=== PATIENT | female | born 1995 | race Caucasian/White ===

== ENCOUNTER 2018-12-18 14:49 | Emergency (ER) | payer BC ==
[~2018-12-18 14:49] MED LIST: ACE325S PR; ARIP5TAB28; ARIP5TAB28 PO; CYCL10TA29 PO; DESV50TA9 PO; DOCU-416 PO; DOXE10CA25 PO; ESCI10TA48; ESCI10TA48 PO; FLU10 PO; FLUO-202 PO; HYDR-653 PO; HYDR25CA13 PO; IRON1TAB4 PO; LISI30TA46 PO; LOR5/325 PO; LORA10TA2 PO; MULT1CAP59 PO; NO CURRENT MEDS; NOR5/325 PO; OMEP40CA48 PO; OXYC-865 PO; OXYC1TAB54 GT; PARO-243 PO; SUCR1TAB85 PO; TRAZ-133 PO; VENL75TA12 PO
--- NOTE | 2018-12-18 15:25 | ER Report ---
History and Physical Time Seen By MD: 15:25 Hx. of Stated Complaint: C/O UPPER, MID AND LOWER BACK PAIN SINCE TRYING ON CLOTHES YESTERDAY. HPI/ROS CHIEF COMPLAINT: back pain HISTORY OF PRESENT ILLNESS:Pt states that two days ago she was trying on clothes. when trying to squeeze into a pair of pants pt states her low back went into a spasm. Pt has had back pain since that occurred. Pain is now mid thorasic down to her buttocks. Pain radiates down both legs to knees. Pain is sharp, crampy and spasm like. no weakness. no trouble with bowel or bladder. pt using tylenol and salonpas and it was initially helping but not anymore. Pt states when she was 12 years old she fell off a trampoline and has had intermittent back pain since then. Pt statse she was told she had "pinched nerve" . Pt sees a chiropractor for her back intermittently but not recently. REVIEW OF SYSTEMS: Constitutional: No fever, no chills. Eyes: No discharge. ENT: No sore throat. Cardiovascular: No chest pain, no palpitations. Respiratory: No cough, no shortness of breath. Gastrointestinal: No abdominal pain, no vomiting. Genitourinary: No hematuria. Musculoskeletal: + back pain, + spasms Skin: No rashes. Neurological: No headache, + radiation down legs Allergies: Coded Allergies: trazodone (Verified Allergy, Intermediate, HIVES, 12/18/18) Penicillins (Verified Allergy, Mild, 12/18/18) Home Meds Reported Medications Paroxetine Hcl (PAXIL) 20 Mg Tablet, 40 MG PO QDAY, TAB 07/01/17 Hydroxyzine Pamoate (HYDROXYZINE PAMOATE) 25 Mg Capsule, 25 MG PO QHS, CAPSULE 09/29/15 Discontinued Scripts Omeprazole (OMEPRAZOLE) 40 Mg Capsule.dr, 40 MG PO QDAY, #30 CAP Prov:LANA SHEPHERD 07/01/17 Sucralfate (CARAFATE) 1 Gm Tablet, 1 GM PO QID, #60 TAB Take before meals and at bedtime. Crush the tablet and mix with water before taking. Prov:LANA SHEPHERD 07/01/17 Past Medical/Surgical History Pmhx: cough, asthma, abdominal pain, wrist fractures, back pain, anxiety, depression, suicide attempt. Pshx: tonsillectomy, bilateral tubes in ears, adenoidectomy, cholecystectomy. Pfhx: cancer, CAD, stroke, diabetes. Reviewed Nurses Notes: Yes Old Medical Records Reviewed: Yes Hx Smoking: Yes (1/3 PPD) Smoking Status: Current: Every Day Smoker Exposure to Second Hand Smoke?: Yes Hx Substance Use Disorder: No Hx Alcohol Use: No Constitutional Vital Sign - Last 24 Hours 12/18/18 15:06 Temp 98.4 Pulse 117 Resp 20 B/P (MAP) 143/91 Pulse Ox 95 O2 Delivery Room Air Physical Exam General Appearance: The patient is alert, has no immediate need for airway protection and no signs of toxicity. Eyes: Pupils equal and round no pallor or injection, EOMI ENT: no pharyngeal erythema or exudates, Mucous membranes are moist Respiratory: There are no retractions, lungs are clear to auscultation. Cardiovascular: Regular rate and rhythm. pulses are equal and symmetrical Gastrointestinal: Abdomen is soft and non tender, no masses, bowel sounds normal, no guarding, no rigidity or rebound Neurological: Cranial nerves II-XII grossly intact, no sensory or motor loss Skin: Warm and dry, no rashes. Musculoskeletal: Neck is supple non tender, no vertebral tenderness, + tenderness and ropiness paravertebral T4-L4 on Right Extremities are nontender, nonswollen and have full range of motion. DIFFERENTIAL DIAGNOSIS: After history and physical exam differential diagnosis was considered for herniated disc, muscle spasm, spondolythesis Medical Decision Making ED Course/Re-evaluation ED Course Check xrays 12/18/2018 4:43:27 pm Pt feeling improvement after the pain medication. Pts ride is available.will d/c. Will give a day off of work tomorrow. If the pain down legs does not improve in the next week or so pt is instructed to follow up with orthopedics for possible herniated disc. Decision to Disposition Date: Dec 18, 2018 Decision to Disposition Time: 16:44 Depart Departure Latest Vital Signs Vital Signs Date Time Temp Pulse Resp B/P (MAP) Pulse Ox O2 Delivery O2 Flow Rate FiO2 12/18/18 15:06 98.4 117 20 143/91 95 Room Air Impression: Primary Impression: Back pain Additional Impressions: Muscle spasm Lumbar radiculopathy Condition: Improved Disposition: HOME OR SELF-CARE Referrals: [facility] New Scripts Methocarbamol (ROBAXIN-750) 750 Mg Tablet 750 MG PO Q4-6H PRN for MUSCLE SPASMS, #21 TAB Prov: PETER DE OLIVEIRA DO 12/18/18 Departure Forms: ER Transition Record, Medications Reconciliation, Off Work/School Form, School or Work Release?: Work Number of days to be released: 2 Patient Portal Information Patient Instructions: Acute Low Back Pain (ED), Lumbar Radiculopathy (ED) Additional Instructions: Motrin (advil, ibuprofen) 600mg every 6 hours as needed for pain. Percocet one every 4-6 hours as needed for severe pain Robaxin one every 4-6 hours as needed for spasms and tightness. Follow up with [facility] if symptoms do not improve. Problem Qualifiers Primary Impression: Back pain Back pain location: low back pain Chronicity: acute Back pain laterality: unspecified Sciatica presence: with sciatica Sciatica laterality: sciatica laterality unspecified Qualified Codes: M54.40 - Lumbago with sciatica, unspecified side PETER DE OLIVEIRA DO Dec 18, 2018 15:25
[2018-12-18] MEDS ORDERED: IBUPROFEN 600 MG TAB PO ONE (15:40)
[2018-12-18] MEDS ORDERED: DIAZEPAM 5 MG TAB PO ONE (15:40)
--- NOTE | 2018-12-18 16:24 | RADIOLOGY IMAGING REPORT ---
FACILITY: [facility] - [place] PATIENT NAME: Juana Pardo : 1995 MR: [id number] V: [id number] EXAM DATE: [id number] ORDERING PHYSICIAN: PETER DE OLIVEIRA TECHNOLOGIST: Location: [facility] [place] Patient: Juana Pardo : 1995 Visit/Account:[id number] Date of Sevice: 12/18/2018 Exam type: L-SPINE 2 OR 3 VIEW History: Low back pain, no known injury Comparison: CT L-spine March 16, 2017. Findings: AP and lateral views of the lumbar spine were submitted There five nonrib-bearing lumbar-type vertebral bodies present.. There is no evidence of acute fract ures or subluxations in the lumbar spine. Incompletely imaged is what appears to be mild to moderate disc space narrowing with irregularity of the adjacent endplates at T10-11. There is mild straighte abdon of normal lumbar lordosis which can be seen with muscle spasm. IMPRESSION: 1. Mild straightening of normal lumbar lordosis which can be seen with muscle spasm No evidence of acute fractures or subluxations in the lumbar spine Incompletely imaged is what appears to be mild to moderate disc space narrowing with irregularity of the adjacent endplates at T10-11 Report Dictated By: Zita Delacruz MD at 12/18/2018 4:15 PM Report E-Signed By: Zita Delacruz MD at 12/18/2018 4:20 PM WSN:[email or web address]
--- NOTE | 2018-12-18 16:29 | RADIOLOGY IMAGING REPORT ---
[place] [facility] [place] NAME: Juana Pardo : 1995 MR: [id number] V: [id number] EXAM DATE: [id number] ORDERING PHYSICIAN: PETER DE OLIVEIRA TECHNOLOGIST: Location: Patient: Juana Pardo : 1995 Visit/Account:[id number] Date of Sevice: 12/18/2018 Exam type: XR THORACIC SPINE AP & LAT History: back pain Comparison: CT March 16, 2017. Findings: There is a gentle dextroconvex curvature to the thoracic spine.. There appear to be mild spondylotic changes of the lower thoracic spine. The upper thoracic spine is not ideally visualized on the late ral view due to patient rotation and overlapping shadows.. Incidentally noted are surgical clips in right upper quadrant IMPRESSION: 1. Gentle dextroconvex curvature to the thoracic spine Mild bilateral changes in the lower thoracic spine Report Dictated By: Zita Delacruz MD at 12/18/2018 4:20 PM Report E-Signed By: Zita Delacruz MD at 12/18/2018 4:24 PM WSN:[email or web address]
[2018-12-18] MEDS ORDERED: OXYC-373 PO (16:46)
[2018-12-18] MEDS ORDERED: METH-543 PO (16:46)
[2018-12-18 17:12] VITALS: BP 149/107
== END 2018-12-18 17:13 | disposition home or self-care (01) ==
LOC: ER 15:46
DX: M54.41 Lumbago with sciatica, right side (principal); M54.42 Lumbago with sciatica, left side; M62.830 Muscle spasm of back
CPT/HCPCS: 72070; 72100; 99284